=== PATIENT | female | born 1985 | race Caucasian/White ===

== ENCOUNTER 2017-05-13 22:18 | Emergency (ER) | payer OTHER ==
[~2017-05-13] VITALS: Ht 167.6 cm; Wt 74.5 kg
[2017-05-13 22:25] VITALS: Ht 167.6 cm; Wt 74.5 kg
[2017-05-14] MEDS ORDERED: HYDR-906 PO (01:07)
[2017-05-14] MEDS ORDERED: IBUP-1542 PO (01:07)
[2017-05-14] MEDS ORDERED: ALPR0.25 PO (01:21)
--- NOTE | 2017-05-14 01:23 | ERD ---
ER Documentation Chief Complaint Chief Complaint chest pain and left shoulder pain since this afternoon has anxiety HPI 31-year-old female presents here to emergency department for complaints of left shoulder pain that started this afternoon, patient denies any trauma in affected area. It radiated to the left chest area. Patient describes the pain as throbbing pain, 6/10 scale, worse upon movement of the left shoulder. Pain is more near the axillary area. Patient denies any numbness or tingling. Patient denies any shortness of breath or cough. Patient denies any redness or swelling. Patient denies any fever or chills. ROS All systems reviewed and are negative except as per history of present illness. Medications Home Meds Active Scripts Hydrocodone/Acetaminophen (Dawson 5-325 Tablet) 1 Each Tablet, 1 TAB PO Q6H Y for SEVERE PAIN LEVEL 7-10, #20 TAB Prov:JOSE R MUIR NP 05/14/17 Ibuprofen* (Motrin*) 600 Mg Tab, 600 MG PO Q6H Y for PAIN AND OR ELEVATED TEMP, #30 TAB Prov:JOSE R MUIR NP 05/14/17 Reported Medications Alprazolam* (Xanax*) Unknown Strength Tablet, PO TID, TAB 05/14/17 Allergies Allergies: Coded Allergies: Penicillins (Unverified Allergy, Unknown, 05/13/17) PMhx/Soc Medical and Surgical Hx: pt denies Surgical Hx History of Surgery: No Hx Miscellaneous Medical Probl: Yes (anxiety, panic attacks) Hx Alcohol Use: Yes (occasionally) Hx Substance Use: Yes (CBD CBN oil occasionally) Hx Tobacco Use: No Smoking Status: Never smoker FmHx Family History: No coronary disease, No diabetes, No other Physical Exam Vitals Vital Signs Date Time Temp Pulse Resp B/P Pulse Ox O2 Delivery O2 Flow Rate FiO2 05/13/17 22:25 98.4 62 18 125/81 100 Physical Exam GENERAL: The patient is well developed and appropriate for usual state of health, in no apparent distress. CHEST: Clear to auscultation bilaterally. There are no rales, wheezes or rhonchi. HEART: Regular rate and rhythm. No murmurs, clicks, rubs or gallops. No S3 or S4. ABDOMEN: Soft, nontender and nondistended. Good bowel sounds. No rebound or guarding. No gross peritonitis. No gross organomegaly or masses. No Rebolledo sign or McBurney point tenderness. BACK: No midline or flank tenderness. EXTREMITIES: Tenderness on palpation on the lateral aspect of the left shoulder , more near the axillary area, tenderness on palpation, able to do full range of motion of the left shoulder without any restriction. No chest tenderness. Equal pulses bilaterally. There is no peripheral clubbing, cyanosis or edema. No focal swelling or erythema. Full range of motion. Grossly neurovascularly intact. NEURO: Alert and oriented. Cranial nerves 2-12 intact. Motor strength in all 4 extremities with 5/5 strength. Sensation grossly intact. Normal speech and gait. SKIN: There is no apparent rash or petechia. The skin is warm and dry. HEMATOLOGIC AND LYMPHATIC: There is no evidence of excessive bruising or lymphedema. No gross cervical, axillary, or inguinal lymphadenopathy. Results 24 hrs EKG was done, read by me and is normal sinus rhythm at a rate of 64, normal axis , there is no ST changes or changes in the EKG that indicates any cardiac emergencies at this time. Patient's EKG was also reviewed by Dr. Angulo. Impression: no acute findings on EKG Procedures/MDM Medical Decision Making: Patient's pain is most likely consistent with a shoulder strain. there is no suspicion for neurovascular compromise. Patient has intact sensation and circulation of the affected extremity. There is low suspicion for septic arthritis. Patient does not have any fever. Radiology exams of the affected area does not show any fracture or dislocation. Disposition: Home. Patient is given prescription for ibuprofen for pain. Patient was advised to elevate the affected area and apply ice on affected area. Patient was advised that if symptoms are worse, numbness, tingling, high fever, unable to move joint, worsening symptoms, to return to emergency department immediately. Otherwise, patient is advised to follow up with the primary care doctor in 5-7 days for reevaluation of symptoms. Disclaimer: Inadvertent spelling and grammatical errors are likely due to EHR/ dictation software use and do not reflect on the overall quality of patient care. Also, please note that the electronic time recorded on this note does not necessarily reflect the actual time of the patient encounter. Departure Diagnosis: Primary Impression: Shoulder strain Encounter type: initial encounter Laterality: left Qualified Code: S46.912A - Strain of left shoulder, initial encounter Condition: Stable Patient Instructions: Shoulder Pain (Uncertain Cause) JOSE R MUIR NP May 14, 2017 01:23
== END 2017-05-14 01:27 | disposition home or self-care (01) ==
LOC: FTE 22:18
DX: S46.912A Strain of unspecified muscle, fascia and tendon at shoulder and upper arm level, left arm, initial encounter (principal); X58.XXXA Exposure to other specified factors, initial encounter; Y92.9 Unspecified place or not applicable
CPT/HCPCS: 93005; 99283